=== PATIENT | female | born 1990 | race Caucasian/White ===

== ENCOUNTER 2024-10-13 22:17 | Emergency (ER) | payer SELFPAY ==
[2024-10-13 22:25] VITALS: BP 122/85
[2024-10-13 22:53] LABS: HCG, Serum Qualitative Screen Negative; Hematocrit 39.6 % (37.0-47.0); Hemoglobin 13.2 g/dL (12.0-16.0); Mean Corp Hgb Conc. 33.3 g/dL (33.0-37.0); Mean Corpuscular Hgb 28.6 pg (27.0-31.0); Mean Corpuscular Volume 85.7 fL (81.0-99.0); Mean Platelet Volume 9.1 fL (7.4-10.4); Platelet Count 345 10^3/uL (130-400); Red Blood Cell Count 4.62 10^6/uL (4.20-5.40); Red Cell Dist. Width 13.1 % (11.5-14.5); White Blood Cell Count 10.2 10^3/uL (4.8-10.8)
[2024-10-13 22:55] LABS: ALT (SGPT) 21 U/L (0-35); AST (SGOT) 24 U/L (14-36); Albumin 4.6 g/dl (3.5-5.0); Alkaline Phosphatase 54 U/L (38-126); Blood Urea Nitrogen 17 mg/dl (7-17); Calcium 9.3 mg/dl (8.4-10.2); Carbon Dioxide 30 mmol/L (22-30); Chloride 100 mmol/L (98-107); Glucose 94 mg/dl (70-99); Potassium 4.7 mmol/L (3.5-5.1); Sodium 139 mmol/L (135-145); Total Protein 7.5 g/dl (6.3-8.2); eGFR > 60.00
[2024-10-13 22:58] LABS: % Basophils 0.6 % (0-2); % Eosinophils 2.4 % (0-6); % Immature Granulocytes 0.3 % (0-0.5); % Lymphocytes 45.6 % (20.5-51.1); % Monocytes 7.6 % (1.7-9.3); % Neutrophils 43.5 % (42.2-75.2); Absolute Basophils 0.1 10^3/uL (0-0.2); Absolute Eosinophils 0.2 10^3/uL (0-0.7); Absolute Lymphocytes 4.6 10^3/uL (1.2-3.4); Absolute Monocytes 0.8 10^3/uL (0.1-0.6); Absolute Neutrophils 4.4 10^3/uL (1.4-6.5); Nucleated Red Blood Cells % 0 %
[2024-10-13 23:21] VITALS: BP 118/82
== END 2024-10-13 23:24 ==
LOC: EMR 22:17
PROVIDERS: Student in an Organized Health Care Education/Training Program
DX: R20.0 Anesthesia of skin (principal); Z53.21 Procedure and treatment not carried out due to patient leaving prior to being seen by health care provider
CPT/HCPCS: 99281; 80053; 84703; 85025

== ENCOUNTER 2024-10-14 21:02 | Emergency (ER) | payer OTHER, SELFPAY ==
[2024-10-14 21:08] VITALS: BP 118/82
[2024-10-14 22:14] VITALS: BP 127/73
[2024-10-14 22:18] VITALS: BMI 31.1
--- NOTE | 2024-10-14 22:22 | EDRN ---
Pt with numbness from her kneecaps down for 1 week. Pt now notes numbness on entire L side of body. Pt says she was trying to diaper her child and was unable to open the tabs on the diaper. Pt felt numb from the waist down yesterday and now she
has numbness 'from my face down.' Pt developed a posterior headache today for which she took 600mg ibuprofen this morning and when it did not help, she drank some coffee which did not help. Pt adds she is dizzy sometimes and that her feet are 'ice
cold and white, feel like they are wet but they are not.' Pt denies cp, sob, abd pain, n/v/d/c, urinary symptoms, fever/chills/cough, visual/speech disturbance, photophobia, weakness.
--- NOTE | 2024-10-14 23:01 | ED.GENMED ---
History of Present Illness
<FRANCIE Delgado - Last Filed: 10/15/24 00:04>
General
Chief Complaint: Numbness
Source: patient
Time Seen by Provider: 10/14/24 22:05
History of Present Illness
History of Present Illness:
This is a 34 y/o female with PMH of psoriatic arthritis who presents to the ED with CC of numbness. She admits to constant L > R feet numbness x 2 days. She describes paresthesias in the bilateral lower legs that have resolved after a week. She
admits to dizziness that started a few hours ago and describes it as feeling like 'swaying on a boat'. Dizziness improves when sitting down. She admits to waking up this morning with a headache located occipitally and rates it 8/10 severity. Admits
to 'shock feeling' in bilateral feet with flexion of the neck. States this has been going on for months when she looks down at her feet. She denies any improvement with Ibuprofen. Her 10 y/o daughter recently passed in Jun 2024 from Glioblastoma.
She admits to a family hx of T2DM. Denies family hx of MS. Denies F/N/V, cough, weight loss/gain, fatigue, vision changes, dyspnea, palpitations, chest pain, diarrhea, abdominal pain, joint pain or swelling, back pain, neck pain, tremor and memory
loss.
Past History
<FRANCIE Delgado - Last Filed: 10/15/24 00:04>
Past History
ED Past Medical History: None
ED Past Surgical History: None
Social History
Tobacco: Non-smoker
Alcohol: None
Phy Exam
<FRANCIE Delgado - Last Filed: 10/15/24 00:04>
Physical Exam
Physical Exam:
Skin: [place], soft, well-hydrated; turgor with instant recoil
Head: Atraumatic, normocephalic; scalp, pink freely moveable without tenderness
Eyes: sclerae non-icteric; PERRLA; EOMI; no lid lag; red reflex present
Resp: muscle and respiratory effort symmetric without use of accessory muscles; vesicular breath sounds without adventitious sounds; even, quiet breathing
Heart: No lifts or heaves visible; regular rate and rhythm; No murmurs, rubs or gallops
PV: radial, dorsalis pedis and posterior tibial pulses all intact bilaterally; no edema, swelling, varicosities or tenderness in LE
Abd: soft, round, non-distended abdomen; aorta midline with no visible pulsation; normoactive bowel sounds
Neuro: AAO x 3; CN II-VII intact; dlclc-lb-uindx testing intact; Heel to suarez intact; KAREN's intact; Clinical Pharmacy Coordinator strength 5/5 bilaterally; sensation to light touch and pain decreased on L arm, L flank, L thigh, L suarez and L foot, intact on R; biceps,
triceps, brachioradialis, patellar and ankle reflexes present and equal; negative Babinski sign;
General Physical Exam
General Presentation: well appearing
General age: appears stated age
General Skin: warm and dry
General Habitus: normal
General Mental: alert
General Hydration: appears well hydrated
Course
<Lyn Bustillos [facility] - Last Filed: 10/15/24 00:04>
Orders/Labs/Results
Orders:
Orders
10/14/24 22:32
CT Head W/o Iv Contrast Urgent
Comment:
Reason For Exam: numbness/tingling L side body/posterior headache
10/14/24 22:57
Comprehensive Metabolic Panel Urgent
Magnesium Urgent
TSH Reflex To Free T4 Urgent
10/14/24 22:58
Complete Blood Count/With Diff Urgent
Abnormal Lab Results
10/15/24
00:23
WBC 11.4 H 10^3/uL
(4.8-10.8)
10/15/24 00:23
10/15/24 00:23
Vital Signs
Initial and Last Documented VS:
Initial Vital Signs
Temp Pulse Resp BP Pulse Ox
98 F 100 24 118/82 99
10/14/24 21:08 10/14/24 21:08 10/14/24 21:08 10/14/24 21:08 10/14/24 21:08
Last Documented Vital Signs
Temp Pulse Resp BP Pulse Ox
98 F 93 15 127/73 98
10/14/24 21:08 10/14/24 22:14 10/14/24 22:14 10/14/24 22:14 10/14/24 22:14
<Ebony Skinner, DO - Last Filed: 10/15/24 01:04>
Orders/Labs/Results
Orders:
Orders
10/14/24 22:32
CT Head W/o Iv Contrast Urgent
Comment:
Reason For Exam: numbness/tingling L side body/posterior headache
10/14/24 22:57
Comprehensive Metabolic Panel Urgent
Magnesium Urgent
TSH Reflex To Free T4 Urgent
10/14/24 22:58
Complete Blood Count/With Diff Urgent
Abnormal Lab Results
10/15/24
00:23
WBC 11.4 H 10^3/uL
(4.8-10.8)
10/15/24 00:23
10/15/24 00:23
Vital Signs
Initial and Last Documented VS:
Initial Vital Signs
Temp Pulse Resp BP Pulse Ox
98 F 100 24 118/82 99
10/14/24 21:08 10/14/24 21:08 10/14/24 21:08 10/14/24 21:08 10/14/24 21:08
Last Documented Vital Signs
Temp Pulse Resp BP Pulse Ox
98 F 93 15 127/73 98
10/14/24 21:08 10/14/24 22:14 10/14/24 22:14 10/14/24 22:14 10/14/24 22:14
<FRANCIE Delgado - Last Filed: 10/15/24 00:04>
*Critical Care Note
Total Time (30-74mins, 75-104mins- exclusive of procedures): Not Applicable
<Ebony Skinner DO - Last Filed: 10/15/24 01:04>
*Radiology
Radiology exam reviewed: radiology read reviewed (CT of the head is unremarkable)
*Pulse Oximetry
Patient hypoxic: no
ED Attending Note
<FRANCIE Delgado - Last Filed: 10/15/24 00:04>
-
Portions of this chart may have been created with voice recognition software.� Occasional wrong word or��sound alike� substitutions may have occurred due to the inherent limitations of voice recognition software.
<Ebony Skinner DO - Last Filed: 10/15/24 01:04>
ED Attending Note
Patient seen and examined by attending physician: Yes
I performed the substantive portion of visit, reviewed & personally made and approve the management plan that is documented in note by myself or JACK.: Yes
ED Attending Note:
This is a 34-year-old woman who has history of psoriatic arthritis, maintained on Simponi. 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
She presents with over 1 week history of bilateral lower leg numbness initially beginning bilateral lower legs from her knees down 1 week ago. Symptoms have persisted and now progressed to numbness to the left side of her body and less numbness to
her right lower leg but does continue with some numbness of her right foot. She has not noticed weakness, no difficulty ambulating, no tripping, no neck nor back pain, no chest pain or palpitations no abdominal pain. She has not noticed a rash.
She denies fever nor chills.
She denies risk of , last normal menstrual period was 1 week ago. She has IUD in place.
She does note occipital headache which began today. She took a dose of ibuprofen without relief. No vision difficulty, no dizziness nor lightheadedness.
No history of similar episodes in the past however she did present to this ED August 2023 and at that time complaining of bilateral hand numbness. She discovered she was newly at that time perhaps 8 weeks and she states after that visit
August 2023 bilateral hand paresthesia resolved after first trimester of the .
Family history remarkable for 10-year-old son who June 2024 of glioblastoma. There is no known family history of other neurologic disorders, no history of MS etc.
Of note, Patient presented to this ED 24 hours ago and had blood work drawn in triage which was unremarkable save for minimally elevated creatinine of 1.1. Patient left prior to being seen by provider due to extended wait time.
She has driven herself to the ED tonight.
GENERAL: 34-year-old woman appears her stated age, bright and alert, pleasant, appears in no acute distress. Easily communicative.
EYE: pupils equal and reactive. anicteric
NECK: Supple, nontender, full range of motion without difficulty nor pain, no meningismus, no significant adenopathy.
ENT: posterior pharynx is clear, oral mucosa is moist. No rhinorrhea. TMs are clear bilaterally.
CARDIAC: Regular rate and rhythm. no murmur.
LUNGS: Clear breath sounds bilaterally, no acute respiratory distress, no wheezes/rales/rhonchi
ABDOMEN: Soft, nondistended, without focal tenderness, no r/g, no cvat. normoactive BS.
BACK: No midline bony tenderness.
NEUROLOGICAL: Alert and oriented x3, cranial nerves II through XII grossly intact. Paresthesia noted left lower extremity and mildly to the left upper extremity. Motor strength 5/5 bilaterally. DTRs +2/4 and symmetric bilaterally. Toes are
downgoing bilaterally.
SKIN: Warm and dry, normal color, skin intact. No rash.
MUSCULOSKELETAL: No C/C/E. peripheral pulses are full and equal b/l. No palpable tenderness.
PSYCH: Normal and appropriate interaction.
Patient presents with somewhat global paresthesia left-sided and to lesser extent right lower leg ongoing for 1 week without associated weakness.
Concern for demyelinating disease such as MS, other consideration is intracranial mass, other consideration is CVA, electrolyte abnormality, thyroid disorder.
Nothing in history nor exam to suggest Guillain-Robles�.
Unremarkable CBC and complete metabolic panel yesterday save for minimally elevated creatinine of 1.1. Will repeat today and will add thyroid functions. hCG negative yesterday, no indication to repeat. Patient denies risk of and has not
missed a period.
Will check CT of the head.
01:00
Patient remains well in appearance.
CT of the head is unremarkable.
Labs thus far unremarkable. Minimally elevated white blood cell count. Chemistries are unremarkable. TSH is pending.
Patient eager to be discharged to home. Will notify if TSH is abnormal.
Encouraged prompt follow-up with PCP for recheck.
Will refer to neurology for follow-up as well. If paresthesias persist, to consider EMG/nerve conduction study of all 4 extremities, consider MRI.
Return precautions discussed.
Discharge Plan
Departure
Patient Disposition: Home (Routine Discharge)
Date of Disposition: 10/15/24
Time of Disposition: 01:01
Patient with high blood pressure during this ER visit?: No
Condition: Good
Discharge Problem:
Numbness
Instructions: Paresthesia (DC)
Prescriptions:
No Action
Simponi
IM MONTHLY
Patient Comments:
pt does not know mg
dextroamphetamine-amphetamine [Adderall] 30 mg Tablet
15 mg PO DAILY
Referrals:
Neelam Garcia MD [Active] - Call in 1-3 days for appt
Santos Marshall DO [Family Provider] - Call in 1-3 days for appt
Interventions
Interventions:
*Risk Screen - Suicide Last Done: 10/14/24 21:08
*General Assessment Last Done: 10/14/24 22:18
*Neglect/Abuse Screening Last Done: 10/14/24 21:08
*ED COVID-19 Vaccine History Last Done: 10/14/24 22:18
ED- Neurological Assessment Last Done: 10/14/24 22:18
Discharge Date and Time
Print Language: CITIZ[place]
[2024-10-15 00:48] LABS: Hematocrit 39.3 % (37.0-47.0); Hemoglobin 13.1 g/dL (12.0-16.0); Mean Corp Hgb Conc. 33.3 g/dL (33.0-37.0); Mean Corpuscular Hgb 28.5 pg (27.0-31.0); Mean Corpuscular Volume 85.6 fL (81.0-99.0); Mean Platelet Volume 9.2 fL (7.4-10.4); Platelet Count 333 10^3/uL (130-400); Red Blood Cell Count 4.59 10^6/uL (4.20-5.40); White Blood Cell Count 11.4 10^3/uL (4.8-10.8)
[2024-10-15 00:56] LABS: ALT (SGPT) 22 U/L (0-35); AST (SGOT) 22 U/L (14-36); Albumin 4.4 g/dl (3.5-5.0); Alkaline Phosphatase 54 U/L (38-126); Blood Urea Nitrogen 16 mg/dl (7-17); Calcium 8.9 mg/dl (8.4-10.2); Carbon Dioxide 27 mmol/L (22-30); Chloride 100 mmol/L (98-107); Estimated Creatinine Clearance 113 ml/min; Glucose 99 mg/dl (70-99); Magnesium 2.1 mg/dl (1.6-2.3); Potassium 4.3 mmol/L (3.5-5.1); Sodium 137 mmol/L (135-145); Total Bilirubin 0.9 mg/dl (0.2-1.3); Total Protein 7.1 g/dl (6.3-8.2); eGFR > 60.00
[2024-10-15 01:15] VITALS: BP 126/81
[2024-10-15 01:19] LABS: % Basophils 0.5 % (0-2); % Eosinophils 2.1 % (0-6); % Immature Granulocytes 0.3 % (0-0.5); % Lymphocytes 46.1 % (20.5-51.1); % Monocytes 6.5 % (1.7-9.3); % Neutrophils 44.5 % (42.2-75.2); Absolute Basophils 0.1 10^3/uL (0-0.2); Absolute Eosinophils 0.2 10^3/uL (0-0.7); Absolute Lymphocytes 5.2 10^3/uL (1.2-3.4); Absolute Monocytes 0.7 10^3/uL (0.1-0.6); Absolute Neutrophils 5.1 10^3/uL (1.4-6.5); Nucleated Red Blood Cells % 0 %
[2024-10-15 02:41] LABS: TSH Reflex To Free T4 1.52 uIU/ml (0.47-4.68)
== END 2024-10-15 01:24 | disposition home or self-care (01) ==
LOC: EMR 21:02
PROVIDERS: EMERGENCY PHYSICIAN Emergency Medicine; FAMILY PHYSICIAN Family Medicine
DX: R20.0 Anesthesia of skin (principal); L40.50 Arthropathic psoriasis, unspecified
CPT/HCPCS: 99284; 70450; 80053; 83735; 84443; 85025